=== PATIENT | male | born 1990 | race Caucasian/White ===

== ENCOUNTER 2020-04-26 17:49 | Outpatient (CLI) | payer SELFPAY ==
[2020-04-26 18:26] LABS: SARS Covid-2 Antigen Negative (Negative)
[2020-04-28 02:43] LABS: Coronavirus Lab Test PTC Negative
== END 2020-04-26 17:50 | disposition home or self-care (01) ==
PROVIDERS: PCP Family Medicine; Visit Provider Family Medicine
DX: Z20.828 Contact with and (suspected) exposure to other viral communicable diseases (principal)
CPT/HCPCS: 87426; 87635